=== PATIENT | male | born 1950 | race Two or more races ===

== ENCOUNTER 2018-08-21 17:56 | Emergency (ER) | payer OTHER ==
[~2018-08-21] VITALS: Ht 177.8 cm; Wt 83.9 kg
[~2018-08-21 17:56] MED LIST: CIPRO500 MG PO; FLAGYL500MG PO
[2018-08-21] MEDS ORDERED: NEXIUM2.5 MG (18:18)
[2018-08-21] MEDS ORDERED: NORVASC2.5 M1 (18:18)
== END 2018-08-21 20:11 | disposition home or self-care (01) ==
LOC: ER 17:56
DX: T78.1XXA Other adverse food reactions, not elsewhere classified, initial encounter (principal); X58.XXXA Exposure to other specified factors, initial encounter